=== PATIENT | male | born 1950 | race Caucasian/White ===

== ENCOUNTER → 2017-05-04 | Outpatient (CLI) | payer MEDICARE ==
[~2017-05-04] MED LIST: ATORVASTATIN CA10 MG PO; AUGMENTIN XR 101 TER PO; PRILOSEC2.5 MG/Pac PO; SIMVASTATIN OR; SIMVASTATIN20 MG PO
--- NOTE | 2017-05-04 17:08 | RADIOLOGY REPORT PS360 ---
EXAM: THORACIC SPINE-3V SWIMMERS HISTORY: THORACIC BACK PAIN COMPARISON: None FINDINGS: Normal alignment. No fracture or dislocation. No lytic or blastic change. No significant degenerative change. The disc spaces are preserved. IMPRESSION: Negative thoracic spine
== END ==
LOC: RAD 16:10
DX: M54.6 Pain in thoracic spine (principal)

== ENCOUNTER → 2017-05-18 | Outpatient (CLI) | payer MEDICARE ==
--- NOTE | 2017-05-18 12:06 | RADIOLOGY REPORT PS360 ---
SPECT MYOCARDIAL PERFUSION SCAN, REST AND STRESS: EXERCISE STRESS: [facility] REVIEW PGS EF AND WALL MOTION EVALUATION: QPS - PERFUSION EVALUATION: HISTORY: Chest pain PROCEDURE: Rest imaging performed after administration of10.46 millicuries Tc MIBI. Dose administered at 7:00 a.m., with imaging thereafter. Stress imaging was then performed following 7 minutes 32 seconds of exercise stress. The patient achieved a heart [id number] with projected heart rate of132 . Resting BP164/90 with stress 220/84. At maximum exercise stress,30.9 millicuries Tc MIBI administered at 8:50 a.m. with imaging 30 minutes thereafter. FINDINGS: Perfusion Evaluation: The single slice spect images as well as the [facility] bull's-eye data summary were reviewed. Wall Motion and Ejection Fraction Evaluation: Gated SPECT review and analysis used to evaluate these features. There is a 61 % left ventricular ejection fraction. There seems to be good wall motion Patient exercised 7 minutes 32 seconds on standard [facility] protocol and experienced back and bilateral arm pain consistent with exercise-induced angina. The EKG revealed less than [address] segment depression. The exercise portion of this test was considered abnormal. SPECT images reveal severely decreased activity in the mid anterior apical wall severely decreased activity through the inferior wall and septum. Rest images reveal significantly improved activity throughout the anterior apical inferior and septal wall. IMPRESSION: This is a high risk abnormal Myoview with multiple defects highly suggestive of multivessel coronary artery disease. The ejection fraction is normal with mild apical hypokinesis. This test suggests reversible ischemia in the anterior wall and inferior wall.
--- NOTE | 2017-05-18 12:06 | RADIOLOGY REPORT PS360 ---
SPECT MYOCARDIAL PERFUSION SCAN, REST AND STRESS: EXERCISE STRESS: [facility] REVIEW PGS EF AND WALL MOTION EVALUATION: QPS - PERFUSION EVALUATION: HISTORY: Chest pain PROCEDURE: Rest imaging performed after administration of10.46 millicuries Tc MIBI. Dose administered at 7:00 a.m., with imaging thereafter. Stress imaging was then performed following 7 minutes 32 seconds of exercise stress. The patient achieved a heart [id number] with projected heart rate of132 . Resting BP164/90 with stress 220/84. At maximum exercise stress,30.9 millicuries Tc MIBI administered at 8:50 a.m. with imaging 30 minutes thereafter. FINDINGS: Perfusion Evaluation: The single slice spect images as well as the [facility] bull's-eye data summary were reviewed. Wall Motion and Ejection Fraction Evaluation: Gated SPECT review and analysis used to evaluate these features. There is a 61 % left ventricular ejection fraction. There seems to be good wall motion Patient exercised 7 minutes 32 seconds on standard [facility] protocol and experienced back and bilateral arm pain consistent with exercise-induced angina. The EKG revealed less than [address] segment depression. The exercise portion of this test was considered abnormal. SPECT images reveal severely decreased activity in the mid anterior apical wall severely decreased activity through the inferior wall and septum. Rest images reveal significantly improved activity throughout the anterior apical inferior and septal wall. IMPRESSION: This is a high risk abnormal Myoview with multiple defects highly suggestive of multivessel coronary artery disease. The ejection fraction is normal with mild apical hypokinesis. This test suggests reversible ischemia in the anterior wall and inferior wall.
== END ==
LOC: RAD 06:56
DX: I20.8 Other forms of angina pectoris (principal)
CPT/HCPCS: A9502